=== PATIENT | male | born 1965 | race Caucasian/White ===

== ENCOUNTER 2016-10-20 17:22 | Emergency (ER) | payer OTHER | END 2016-10-20 17:32 | disposition home or self-care (01) | LOC: ER 17:22 | DX: S29.012A Strain of muscle and tendon of back wall of thorax, initial encounter (principal); S39.012A Strain of muscle, fascia and tendon of lower back, initial encounter; X50.9XXA Other and unspecified overexertion or strenuous movements or postures, initial encounter | CPT/HCPCS: 72072; 72100; 96372; 99283; J1170; J2800; J2930 ==

== ENCOUNTER 2016-10-22 10:36 | Emergency (ER) | payer OTHER | END 2016-10-22 11:39 | disposition home or self-care (01) | LOC: ER 10:36 | DX: S39.012A Strain of muscle, fascia and tendon of lower back, initial encounter (principal); S29.012A Strain of muscle and tendon of back wall of thorax, initial encounter; F17.200 Nicotine dependence, unspecified, uncomplicated; X50.0XXA Overexertion from strenuous movement or load, initial encounter | CPT/HCPCS: 96372; 99283; J2930 ==

== ENCOUNTER 2016-11-05 11:01 | Emergency (ER) | payer OTHER | END 2016-11-05 11:45 | disposition home or self-care (01) | LOC: ER 11:01 | DX: M54.5 Low back pain (principal); F17.200 Nicotine dependence, unspecified, uncomplicated | CPT/HCPCS: 96372; 99283 ==

== ENCOUNTER 2016-11-14 16:13 | Emergency (ER) | payer OTHER | END 2016-11-14 19:39 | disposition home or self-care (01) | LOC: ER 16:13 | DX: M54.5 Low back pain (principal); G89.29 Other chronic pain | CPT/HCPCS: 96372; 99283; A9270-GY; J2800 ==